=== PATIENT | female | born 1950 | race Caucasian/White ===

== ENCOUNTER 2018-09-25 10:03 | Emergency (ER) | payer OTHER ==
[~2018-09-25] VITALS: Ht 162.6 cm; Wt 87.7 kg
[2018-09-25 10:11] VITALS: BP 157/80
--- NOTE | 2018-09-25 10:15 | NUR ---
PT AMBULATED TO LOBBY AT THIS TIME W/ VSS
--- NOTE | 2018-09-25 11:00 | NUR ---
PT AMBULATED TO BED 6 AT THIS TIME.
--- NOTE | 2018-09-25 11:13 | NUR ---
PT BIB SELF TO THE ED WITH THE CHIEF C/O COUGH FOR MORE THAN A WEEK. PT REPORTS CHEST PAIN, HEADACHE ANMD NECK PAIN WITH COUGH. LUNGS CLEAR ON AUSCULTATION. REPORTS CHILLS. TEMPERATURE NOTED 99.8 DEGREE F. DENIES N/V/D. STATES PAIN OF 10/10 AT THIS TIME.
--- NOTE | 2018-09-25 12:12 | NUR ---
PT BEING EVALUATED BY ER AT THIS TIME.
--- NOTE | 2018-09-25 12:27 | NUR ---
PT TAKEN TO THE X-RAY.
--- NOTE | 2018-09-25 12:31 | NUR ---
Patient returned from XRAY. RN re-evaluating patient at bedside.
--- NOTE | 2018-09-25 13:06 | NUR ---
Patient discharged with v/s stable. Written and verbal after care instructions given and explained. Patient alert, oriented and verbalized understanding of instructions. Ambulatory with steady gait. All questions addressed prior to discharge. ID band removed. Patient advised to follow up with PMD. Rx of SHAYLEE JACK given. Patient educated on indication of medication including possible reaction and side effects. Opportunity to ask questions provided and answered.
[2018-09-25 13:07] VITALS: BP 139/91
== END 2018-09-25 13:05 | disposition home or self-care (01) ==
LOC: MED 10:03
DX: J40 Bronchitis, not specified as acute or chronic (principal); R51 Headache; Z88.0 Allergy status to penicillin
CPT/HCPCS: 71046; 99283